=== PATIENT | male | born 1950 | race Caucasian/White ===

== ENCOUNTER 2017-07-08 15:41 | Inpatient (IN) | payer OTHER ==
[~2017-07-08] VITALS: Ht 182.9 cm; Wt 107.5 kg
[2017-07-24] VITALS (15 sets, daily range): BP systolic 102–144; BP diastolic 42–82; PULSE 71–95; TEMP 97.1–98.9
[2017-07-24] MEDS ORDERED: ZESTRIL 20MG TA20 MG PO (06:21)
[2017-07-24] MEDS ORDERED: B-121000 MCG PO (06:22)
[2017-07-24] MEDS ORDERED: ZOLOFT 100MG100 MG PO (06:22)
[2017-07-24] MEDS ORDERED: FOLIC ACID 40400 MCG PO (06:23)
[2017-07-24] MEDS ORDERED: VITAMIN C500 MG PO (06:23)
[2017-07-24] MEDS ORDERED: NATURAL IRON65 MG PO (06:24)
[2017-07-24 14:17] LABS: HEMATOCRIT 35.3 % (42.0-52.0)
[2017-07-25] VITALS (8 sets, daily range): BP systolic 111–150; BP diastolic 57–83; PULSE 60–85; TEMP 97.3–98.6
[2017-07-25 06:42] LABS: MEAN CELL VOLUME 93 fl (80.0-100.0); MEAN CORPUSCULAR HGB CONC 33 g/dl (33.0-37.0); MEAN PLATELET VOLUME 9.2 fl (7.4-10.4); PLATELET COUNT 241 K/mm3 (130-400); RED BLOOD COUNT 3.61 M/mm3 (4.20-5.60)
[2017-07-25 06:45] LABS: HEMATOCRIT 33.6 % (42.0-52.0); HEMOGLOBIN 11.2 g/dl (13.5-18.0); MEAN CORPUSCULAR HEMOGLOBIN 31 pg (27.0-31.0)
[2017-07-25 06:58] LABS: CALCIUM 8.7 mg/dL (8.4-10.2); CREATININE, serum 0.9 mg/dL (0.66-1.25); POTASSIUM 4.5 mmol/L (3.4-5.0)
[2017-07-26 01:35] VITALS: BP 116/61; PULSE 72; TEMP 98.1
[2017-07-26 05:26] VITALS: BP 108/54; PULSE 70; TEMP 98.1
[2017-07-26 09:40] VITALS: BP 115/64; PULSE 72; TEMP 97.6
[2017-07-26 13:49] VITALS: BP 114/64; PULSE 76; TEMP 97.9
== END 2017-07-26 14:30 | disposition home or self-care (01) | DRG 707 ==
LOC: INPTSU 07-24 05:33 → SURG 07-24 05:33
PROVIDERS: Urology
PROC: 0VT00ZZ Resection of Prostate, Open Approach (ICD-10-PCS; principal; 2017-07-24 07:30)
DX: C61 Malignant neoplasm of prostate (principal); K50.90 Crohn's disease, unspecified, without complications; I10 Essential (primary) hypertension
CPT/HCPCS: J0690; J1100; J2250; J2300; J2405; J2704; J2710; J3010; J3480; J7120